=== PATIENT | male | born 1970 | race African-American/Black ===

== ENCOUNTER 2017-06-21 15:56 | Emergency (ER) | payer MEDICAID ==
[~2017-06-21] VITALS: Ht 180.3 cm; Wt 81.6 kg
[2017-06-21 16:12] VITALS: BP 149/108
[2017-06-21] MEDS ORDERED: XANAX0.25 MG ORAL (16:28)
[2017-06-21] MEDS ORDERED: KLONOPIN0.5 MG ORAL (16:28)
[2017-06-21] MEDS ORDERED: NORCO 7.5-3251 EACH ORAL (16:28)
--- NOTE | 2017-06-21 16:32 | Emergency Room Report ---
History of Present Illness General Chief Complaint: Medication Refill Source: Patient Present Illness HPI 46 YO Male presents to the ED c/o loosing his medications : Hctz, Klonopin, and xanax. pt. states the last time he had his medications was yesterday evening. Pt. reports hx of seizures for which he takes Xanax and Klonopin. Pt. reports hx of HTN Denies headaches, visual changes, nausea vomiting. Patient states he has not had a seizure for over one year. Denies CP, Palpitations, LOC, AMS, dizziness, Changes in Vision, Sensation, paresthesias, or a sudden severe headache. Allergies: Coded Allergies: PENICILLINS (Unverified Allergy, Unknown, 08/28/14) Patient History Past Medical History: see triage record Past Surgical History: none Pertinent Family History: none Reviewed Nursing Documentation: PMH: Agreed, PSxH: Agreed Review of Systems All Other Systems: negative except mentioned in HPI Physical Exam Vital Signs Date Time Temp Pulse Resp B/P (MAP) Pulse Ox O2 Delivery O2 Flow Rate FiO2 06/21/17 16:12 98.1 105 18 149/108 98 Room Air Sp02 EP Interpretation: reviewed, normal General Appearance: no apparent distress, alert, GCS 15, non-toxic Head: normocephalic, atraumatic Eyes: bilateral eye normal inspection, bilateral eye PERRL ENT: hearing grossly normal, normal voice Neck: full range of motion Respiratory: lungs clear, normal breath sounds, speaking full sentences Cardiovascular #1: regular rate, rhythm Gastrointestinal: non tender, soft, no guarding, no rebound Musculoskeletal: back normal, gait/station normal, normal range of motion, non- tender Neurologic: alert, oriented x3, responsive, motor strength/tone normal, sensory intact, speech normal Skin: normal color, no rash, warm/dry, well hydrated Lymphatic: no adenopathy Medical Decision Making PA Attestation Dr. cheng is my supervising Physician whom patient management has been discussed with. Diagnostic Impression: Primary Impression: Encounter for medication refill ER Course Pt. presents to the ED c/o loosing his medications : Hctz, Klonopin, and xanax. pt. states the last time he had his medications was yesterday evening. Ddx considered but are not limited to: drug seeking, OD, HTN, seizures just to name afew. Vital signs: are WNL, pt. is afebrile H&PE are most consistent with need for medication refill. ORDERS: none required at this time, the diagnosis is clinical ED INTERVENTIONS: None required at this time. - d/w pt that we do not refill chronic pain medications such as [place] and Benzo' s , that he needs to contact his PCP or chronic pain management. DISCHARGE: At this time pt. is stable for d/c to home. Will provide printed patient care instructions, and any necessary prescriptions. Care plan and follow up instructions have been discussed with the patient prior to discharge. Last Vital Signs Date Time Temp Pulse Resp B/P (MAP) Pulse Ox O2 Delivery O2 Flow Rate FiO2 06/21/17 16:12 98.1 105 18 149/108 98 Room Air Disposition: HOME, SELF-CARE Condition: Stable Scripts Hydrochlorothiazide* (HYDROCHLOROTHIAZIDE*) 25 Mg Tablet 25 MG ORAL DAILY for 20 Days, #20 TAB Prov: Pennie Allen 06/21/17 Patient Instructions: Medicine Refill at the Emergency Department Additional Instructions: For controlled substances such as your opiate pain medications please see her primary care doctor or chronic pain management for refill, as these or not medications that are routinely refilled at the emergency department. Take medications as directed. Follow up with a Primary Care Provider in 3-5 days, even if your symptoms have resolved. --Please review list of primary care clinics, if you do not already have a primary care provider Return sooner to ED if new symptoms occur, or current symptoms become worse. - Please note that this Emergency Department Report was dictated using [employer] person technology software, occasionally this can lead to erroneous entry secondary to interpretation by the dictation equipment. Pennie Allen Jun 21, 2017 16:32
[2017-06-21] MEDS ORDERED: HYDROCHLOROTH12.5 M2 ORAL (16:36)
[2017-06-21] MEDS ORDERED: ABILIFY30 MG ORAL (16:41)
[2017-06-21] MEDS ORDERED: HYDROCHLOROTH12.5 MG ORAL (16:41)
[2017-06-21] MEDS ORDERED: ABILIFY10 MG ORAL (16:41)
[2017-06-21] MEDS ORDERED: VENLAFAXINE HC150 M2 ORAL (16:41)
[2017-06-21] MEDS ORDERED: TYLENOL EXTRA500 MG ORAL (16:42)
[2017-06-21 16:55] VITALS: BP 155/100
[2017-06-21] MEDS ORDERED: HYDROCHLOROTHIA25 MG ORAL (17:17)
[2017-06-21 17:32] VITALS: BP 155/100
== END 2017-06-21 17:25 | disposition home or self-care (01) ==
LOC: EMR 16:20
DX: Z76.0 Encounter for issue of repeat prescription (principal); I10 Essential (primary) hypertension; Z88.0 Allergy status to penicillin
CPT/HCPCS: 99283